=== PATIENT | female | born 1950 | race Caucasian/White ===

== ENCOUNTER 2016-11-08 07:40 | Outpatient (CLI) | payer OTHER | END 2016-11-08 07:41 | disposition home or self-care (01) | DX: E78.1 Pure hyperglyceridemia (principal); R73.9 Hyperglycemia, unspecified; E03.9 Hypothyroidism, unspecified; I10 Essential (primary) hypertension ==

== ENCOUNTER 2016-11-15 09:27 | Outpatient (CLI) | payer OTHER | END 2016-11-15 09:28 | disposition home or self-care (01) | DX: Z12.31 Encounter for screening mammogram for malignant neoplasm of breast (principal) ==

== ENCOUNTER 2017-10-02 08:09 | Outpatient (CLI) | payer OTHER ==
[2017-10-02 08:59] LABS: ALBUMIN/GLOBULIN RATIO 1.4 (1.0-2.2); BILIRUBIN,TOTAL 0.6 mg/dL (0.2-1.0); BUN - BLOOD UREA NITROGEN 31 mg/dL (6-20); CALCIUM 9.7 mg/dL (8.5-10.3); CARBON DIOXIDE - CO2 27 mmol/L (21-32); CHLORIDE 102 mmol/L (101-111); CHOLESTEROL 119 mg/dL; CREATININE 1.1 mg/dL (0.4-1.0); GFR - MDRD 50 (>89); GLUCOSE 103 mg/dL (70-100); HDL CHOLESTEROL 24 mg/dL; LDL/HDL RATIO 2.3 (<4.4); POTASSIUM 4.2 mmol/L (3.5-5.0); SODIUM 140 mmol/L (135-145); TOTAL PROTEIN 7.5 g/dL (6.7-8.2); TRIGLYCERIDES 207 mg/dL; VLDL CHOLESTEROL 41 mg/dL
[2017-10-02 09:22] LABS: HEMOGLOBIN A1C 0.6 g/dL
[2017-10-02 13:03] LABS: BILIRUBIN,URINE NEGATIVE (NEGATIVE)
[2017-10-02 13:41] LABS: WBC,URINE 0-3 /HPF (0-5)
== END 2017-10-02 08:10 | disposition home or self-care (01) ==
LOC: LAB 08:09
PROVIDERS: ATTEND Family Medicine
DX: R73.01 Impaired fasting glucose (principal); E78.5 Hyperlipidemia, unspecified; E03.9 Hypothyroidism, unspecified; I10 Essential (primary) hypertension
CPT/HCPCS: 36415; 80053; 80061; 81001; 83036; 84443

== ENCOUNTER 2017-10-12 10:34 | Outpatient (CLI) | payer OTHER ==
--- NOTE | 2017-10-16 11:47 | XRAY Report ---
DATE OF SERVICE: 10/12/2017 TWO VIEW LUMBAR SPINE: 10/12/2017 CLINICAL INDICATION: Increasing back pain. FINDINGS: Frontal and lateral views of the lumbar spine demonstrate mild degenerative disk and facet disease, with small osteophytes. There is no evidence of compression fracture or subluxation. The bowel gas pattern appears unremarkable. IMPRESSION: Mild degenerative changes. TD: 10/12/2017 21:57
== END 2017-10-12 10:35 | disposition home or self-care (01) ==
LOC: DI 10:34
PROVIDERS: ATTEND Family Medicine
DX: M51.36 Other intervertebral disc degeneration, lumbar region (principal); M47.896 Other spondylosis, lumbar region
CPT/HCPCS: 72100

== ENCOUNTER 2019-03-07 08:49 | Outpatient (CLI) | payer MEDICARE, OTHER ==
--- NOTE | 2019-03-07 10:17 | Mammography Report ---
Reason: PREVENTATIVE HEALTH CARE Procedure Date: 03/07/2019 Accession Number: [id number] / [id number] Procedure: [facility] - Screening Mammo w/Emanuel CPT Code: FULL RESULT: EXAM: Screening Mammo w/Emanuel DATE: 03/07/2019 9:22 AM CLINICAL HISTORY: Screening encounter. History of nulliparity and history of colon cancer. TECHNIQUE: (B) - Bilateral CC and MLO views were obtained. COMPARISON: 11/15/2016 through 12/12/2013. PARENCHYMAL PATTERN: (A) - The breast(s) demonstrate(s) scattered fibroglandular densities. FINDINGS: There are coarse bilateral calcifications. There are no suspicious masses, calcifications, or areas of distortion. IMPRESSION: Benign findings. BI-RADS category 2. RECOMMENDATION: (ANNUAL) - Recommend routine annual screening mammography. BI-RADS CATEGORY: (2) - Benign Findings. STANDARD QUALIFYING STATEMENTS: 1. This examination was not reviewed with the aid of Computer-Aided Detection (CAD). 2. A negative or benign imaging report should not preclude biopsy if clinically suspicious findings are present. 3. Dense breasts may obscure an underlying neoplasm. 4. This examination was reviewed with the aid of 3D breast imaging (tomosynthesis).
== END 2019-03-07 08:50 | disposition home or self-care (01) ==
LOC: DI 08:49
PROVIDERS: ATTEND Family Medicine
DX: Z12.31 Encounter for screening mammogram for malignant neoplasm of breast (principal)
CPT/HCPCS: 77063; 77067

== ENCOUNTER 2019-04-08 10:33 | Outpatient (CLI) | payer MEDICARE, OTHER ==
--- NOTE | 2019-04-08 15:48 | DEXA Report ---
Reason: ASYMPTOMATIC MENOPAUSAL STATE Procedure Date: 04/08/2019 Accession Number: [id number] / [id number] Procedure: DEX - Dexa Spine and/or Hip CPT Code: FULL RESULT: EXAM: Dexa Spine and/or Hip DATE: 04/08/2019 11:24 AM CLINICAL HISTORY: ASYMPTOMATIC MENOPAUSAL STATE TECHNIQUE: Dual energy x-ray absorptiometry (DXA) was performed on a Drik System. Regions measured are the AP Spine, femoral neck, and if needed forearm. COMPARISON: None. In accordance with the International Society for Clinical Densitometry (ISCD) guidelines, data from previous exams may be reanalyzed using current recommendations and techniques. This is done to allow a more accurate basis for comparison with the current study. FINDINGS: The data for the lumbar spine is as follows: BMD (g/cm/cm) T-SCORE Z-SCORE REGION L1 0.970 -1.3 -0.6 L2 1.117 -0.7 0.0 L3 1.107 -0.8 0.0 L4 1.025 -1.5 -0.7 TOTAL 1.056 -1.0 -0.3 NOTE: All evaluable vertebrae are used for classification The data for the hip is as follows: BMD (g/cm/cm) T-SCORE Z-SCORE REGION Neck 0.828 -1.5 -0.5 TOTAL 0.927 -0.6 0.1 NOTE: The femoral neck or total proximal femur, whichever is lowest, is used for classification. IMPRESSION: THE WHO CLASSIFICATION BASED ON THE INTERNATIONAL REFERENCE STANDARD IS OSTEOPENIA. THE FRACTURE RISK IS INCREASED. RECOMMENDATION: Patients with diagnosis of osteoporosis or osteopenia should have regular bone mineral density assessment. For those eligible for Medicare, routine testing is allowed once every 2 years. Testing frequency can be increased for patients who have rapidly progressing disease or for those who are receiving medical therapy to restore bone mass. COMMENT: World Health Organization (WHO) definitions for osteoporosis and osteopenia: NORMAL BMD: T-score at -1.0 or higher, fracture risk is low OSTEOPENIA BMD: T-score between -1.0 and -2.5, fracture risk is increased. OSTEOPOROSIS BMD: T-score at -2.5 or lower, fracture risk is high. National Osteoporosis Foundation recommends: 1. Obtain adequate dietary calcium (at least 1200 mg per day) and vitamin D (400-800 international units per day). 2. Participate, as appropriate, in regular weightbearing and muscle-strengthening exercise. 3. Avoid tobacco use and reduce alcohol and caffeine intake. 4. For more detailed information see the website at www.NOF.org.
== END 2019-04-08 10:34 | disposition home or self-care (01) ==
LOC: DI 10:33
PROVIDERS: ATTEND Family Medicine
DX: M85.89 Other specified disorders of bone density and structure, multiple sites (principal)
CPT/HCPCS: 77080

== ENCOUNTER 2019-05-14 07:16 | Outpatient (CLI) | payer MEDICARE, OTHER ==
[2019-05-14 07:59] LABS: ALBUMIN 3.9 g/dL (3.2-5.5); ALBUMIN/GLOBULIN RATIO 1.3 (1.0-2.2); ALKALINE PHOSPHATASE 59 IU/L (42-121); ALT ALANINE AMINOTRANSFERASE 38 IU/L (10-60); AST ASPARTATE AMINOTRANSFERASE 26 IU/L (10-42); BILIRUBIN,TOTAL 0.6 mg/dL (0.2-1.0); BUN - BLOOD UREA NITROGEN 19 mg/dL (6-20); CALCIUM 9.3 mg/dL (8.5-10.3); CARBON DIOXIDE - CO2 26 mmol/L (21-32); CHLORIDE 102 mmol/L (101-111); CHOL/HDL RATIO 5.7 (<4.4); CHOLESTEROL 153 mg/dL; CREATININE 0.9 mg/dL (0.4-1.0); GFR - MDRD 62 (>89); GLUCOSE 124 mg/dL (70-100); HDL CHOLESTEROL 27 mg/dL; LDL CHOLESTEROL,CALCULATED 62 mg/dL; LDL/HDL RATIO 2.3 (<4.4); SODIUM 139 mmol/L (135-145); TOTAL PROTEIN 6.9 g/dL (6.7-8.2); VLDL CHOLESTEROL 64 mg/dL
[2019-05-14 09:27] LABS: THYROID STIMULATING HORMONE 0.65 uIU/mL (0.34-5.60)
[2019-05-14 09:28] LABS: HB2 TOTAL 13.8 g/dL; HEMOGLOBIN A1C 0.64 g/dL; HEMOGLOBIN A1C % 6.4 % (4.6-6.2)
[2019-05-14 09:29] LABS: FREE T4 (FREE THYROXINE) 0.81 ng/dL (0.58-1.64)
[2019-05-14 14:15] LABS: BILIRUBIN,URINE NEGATIVE (NEGATIVE); GLUCOSE, URINE (UA) NEGATIVE (NEGATIVE); KETONES,URINE (UA) NEGATIVE (NEGATIVE); LEUKOCYTE ESTERASE, URINE TRACE (NEGATIVE); NITRITE,URINE NEGATIVE (NEGATIVE); OCCULT BLOOD,URINE NEGATIVE (NEGATIVE); PROTEIN,URINE NEGATIVE (NEGATIVE); UROBILINOGEN,URINE 0.2 (NORMAL) E.U./dL (NORMAL)
[2019-05-14 14:29] LABS: BACTERIA,URINE None Seen /HPF (None Seen); CLARITY,URINE CLEAR (CLEAR); RBC,URINE None Seen /HPF (0-5); SQUAMOUS EPITHELIAL CELL,UR MOD Squamous (<= Few)
== END 2019-05-14 07:17 | disposition home or self-care (01) ==
LOC: LAB 07:16
PROVIDERS: ATTEND Family Medicine
DX: Z00.00 Encounter for general adult medical examination without abnormal findings (principal); I10 Essential (primary) hypertension; E78.2 Mixed hyperlipidemia; E03.9 Hypothyroidism, unspecified
CPT/HCPCS: 36415; 80053; 80061; 81001; 83036; 83721; 84439; 84443

== ENCOUNTER 2019-09-15 12:17 | Emergency (ER) | payer MEDICARE, OTHER ==
[2019-09-15] MEDS ORDERED: OXYMETAZOLINE HCL 100 SPRAYS BOTTLE NAS STA (12:45)
--- NOTE | 2019-09-15 12:47 | ED Physician Documentation ---
History of Present Illness - Stated complaint Stated Complaint: NOSE BLEED - Chief complaint Chief Complaint: Heent - Additonal information Additional information: This is a 69-year-old and recurrent nosebleeds since she has been in college, who presents with a nosebleed. Patient states that her bleeds always come from the right nostril, she has seen her primary care provider for this and discussed cauterization, and they recommended using Vaseline and avoiding trauma or hard nose blowing. She has had several nosebleeds in the last month, and this 1 began after she blew her nose today. She does take 325 mg of aspirin daily, no other blood thinners. She denies bleeding elsewhere. 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 - Present Medications Home Medications: Ambulatory Orders Medication Instructions Recorded Confirmed Aspirin [Gerald] 325 mg ORAL DAILY 07/01/14 07/01/14 Atenolol 50 mg ORAL DAILY 07/01/14 07/01/14 Benazepril/Hydrochlorothiazide 20 mg ORAL DAILY 07/01/14 07/01/14 [Benazepril-Hctz 20-12.5 mg Tab] Citalopram [CeleXA] 40 mg ORAL DAILY 07/01/14 07/01/14 Levothyroxine [Synthroid] 112 mcg ORAL DAILY 07/01/14 07/01/14 Omeprazole 20 mg ORAL BID 07/01/14 07/01/14 - Allergies Allergies/Adverse Reactions: Allergies Allergy/AdvReac Type Severity Reaction Status Date / Time morphine Allergy Rash Verified 09/15/19 12:27 Penicillins Allergy Hives Verified 09/15/19 12:27 PD ED PE NORMAL - Vitals Vital signs reviewed: Yes - General General: Alert and oriented X 3 - HEENT HEENT: Other (Dried blood on the face, pharynx is normal in appearance with no blood going down the back of the throat. There is oozing from the right nostril.) - Cardiac Cardiac: RRR - Respiratory Respiratory: No respiratory distress - Neuro Neuro: Alert and oriented X 3 Results - Vitals Vitals: Oxygen O2 Source Room air PD MEDICAL DECISION MAKING - ED course ED course: Pt presents with epistaxis that resolved with direct pressure. She has no symptoms to suggest coagulopathy, significant blood loss/anemia, or thrombocytopenia. I discussed care, avoiding blowing nose today to allow time for healing, and the use of afrin and direct pressure if the nosebleed recurs. I also discussed return precautions. After observation for >30 mins she has no further bleeding and was discharged home. Departure - Departure Disposition: 01 Home, Self Care Clinical Impression: Epistaxis Condition: Good Instructions: ED Nosebleed Follow-Up: Nando Zambrano MD [Physician No Access] - (For follow up on recurrent nosebleeds) Comments: If you have a recurrence of your nosebleed, please spray 2 sprays of the Afrin in the nostril which is bleeding and then hold direct pressure on your nose for 10 to 15 minutes without interruption. If you are still having bleeding after this return to the emergency department. Please follow-up with Dr. Zambrano of ENT, who can assess you for the cause of your recurrent bleeds and potentially consider cauterization or other intervention. If you are developing any new or concerning symptoms return to the ED. Discharge Date/Time: 09/15/19 14:33
[2019-09-15 14:40] VITALS: BP 124/59
== END 2019-09-15 14:33 | disposition home or self-care (01) ==
LOC: ED 12:17
DX: R04.0 Epistaxis (principal); I10 Essential (primary) hypertension; Z79.82 Long term (current) use of aspirin
CPT/HCPCS: 99281; 99284; A9270

== ENCOUNTER 2020-12-24 18:23 | Outpatient (CLI) | payer MEDICARE, OTHER | END 2020-12-24 18:24 | disposition home or self-care (01) | LOC: COV 18:23 | PROVIDERS: ATTEND Nurse Practitioner Family | DX: Z01.812 Encounter for preprocedural laboratory examination (principal); Z86.010 Personal history of colon polyps; Z85.038 Personal history of other malignant neoplasm of large intestine; Z20.822 Contact with and (suspected) exposure to COVID-19 ==

== ENCOUNTER 2021-01-14 15:47 | Outpatient (CLI) | payer MEDICARE, OTHER ==
--- OUTSIDE RECORDS SUMMARY | 2021-01-19 02:23 | EXTERNAL MEDICAL SUMMARY RPT | Continuity of Care Document ---
:1950 Demographics Phone Unavailable Preferred Language Unknown Marital Status Unknown Moravian Affiliation Unknown Race Unknown Ethnic Group Unknown Author Organization [facility] Address [address] [place] [address] Phone Social History date description facility [phone]
== END 2021-01-14 15:48 | disposition critical access hospital (66) ==
LOC: EMS 15:47
PROVIDERS: ATTEND Emergency Medicine
DX: M25.511 Pain in right shoulder (principal); M79.601 Pain in right arm
CPT/HCPCS: A0425; A0429

== ENCOUNTER 2021-01-14 16:16 | Emergency (ER) | payer MEDICARE, OTHER ==
[2021-01-14] MEDS ORDERED: fentaNYL 100 MCG/2 ML VIAL IVP STA ×2 (16:38→17:30)
[2021-01-14] MEDS ORDERED: diazePAM INJ 5 MG/ML SYRINGE IVP STA (17:30)
--- NOTE | 2021-01-14 17:53 | XRAY Report ---
PROCEDURE: Shoulder 3 View RT INDICATIONS: fall, shoulder pain TECHNIQUE: 3 views of the shoulder were acquired. COMPARISON: None. FINDINGS: Bones: There is anterior dislocation of the right glenohumeral joint. A comminuted fracture of the s uperolateral humeral head involving the greater tuberosity is demonstrated. A lucency is demonstrated within the inferior glenoid suggestive of a relatively nondisplaced glenoid fracture. Visualized rib s appear intact. Soft tissues: No suspicious soft tissue calcifications. IMPRESSION: 1. Anterior dislocation of the glenohumeral joint. 2. Comminuted humeral head fracture involving the greater tuberosity. 3. Suspected nondisplaced fracture of the inferior glenoid. Reviewed by: Augie Nava MD on 01/14/2021 5:52 PM PDT Approved by: Augie Nava MD on 01/14/2021 5:52 PM PDT Station ID: [id number]
[2021-01-14] MEDS ORDERED: PROPOFOL 200 MG/20 ML VIAL IVP STA (18:14)
[2021-01-14] MEDS ORDERED: SODIUM CHLORIDE 0.9% 1,000 ML IV STA (18:14)
--- NOTE | 2021-01-14 18:46 | XRAY Report ---
PROCEDURE: Shoulder 2 View RT INDICATIONS: R shoulder post reduction TECHNIQUE: 2 views of the shoulder were acquired. COMPARISON: 01/14/2021. FINDINGS: Bones: There is interval reduction of the glenohumeral joint. There is also reduction of the fractur e fragments along the lateral humeral head involving the greater tuberosity. Suspected nondisplaced g lenoid fracture not well visualized on the current study. There is mild acromioclavicular joint degen eration. No suspicious bony lesions. Visualized ribs appear intact. Soft tissues: No suspicious soft tissue calcifications. IMPRESSION: 1. Interval reduction of the glenohumeral joint. 2. Improved alignment of humeral head fracture fragments status post closed reduction. Reviewed by: Augie Nava MD on 01/14/2021 6:45 PM PDT Approved by: Augie Nava MD on 01/14/2021 6:45 PM PDT Station ID: [id number]
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
[2021-01-14] MEDS ORDERED: oxyCODONE 5 MG TABLET PO STA (19:07)
[2021-01-14 19:29] VITALS: BP 138/89
--- OUTSIDE RECORDS SUMMARY | 2021-01-19 02:13 | EXTERNAL MEDICAL SUMMARY RPT | Continuity of Care Document ---
:1950 Demographics Phone Unavailable Preferred Language Unknown Marital Status Unknown Hinduism Affiliation Unknown Race Unknown Ethnic Group Unknown Author Organization [facility] Address [address] [place] [address] Phone Social History date description facility [phone]
== END 2021-01-14 19:28 | disposition home or self-care (01) ==
LOC: EDUNIT# → ED 16:16 → SUPCPDRO 16:16 → ED 19:28
DX: S42.254A Nondisplaced fracture of greater tuberosity of right humerus, initial encounter for closed fracture (principal); S43.014A Anterior dislocation of right humerus, initial encounter; W18.30XA Fall on same level, unspecified, initial encounter; I10 Essential (primary) hypertension; Z79.82 Long term (current) use of aspirin
CPT/HCPCS: 23665; 36415; 73030; 96361; 96374; 96375; 96376; 99151; 99284; 99285; A9270; 94770

== ENCOUNTER 2021-09-12 08:48 | Outpatient (CLI) | payer MEDICARE, OTHER ==
--- NOTE | 2021-09-13 08:20 | Mammography Report ---
BILATERAL DIGITAL SCREENING MAMMOGRAM 3D/2D WITH EXAGGERATED CC: 09/12/2021 CLINICAL: Routine screening. Comparison is made to exams dated: 08/04/2008 mammogram, 11/15/2016 mammogram, 01/12/2015 mammogram, mammogram, 05/03/2011 mammogram, and 02/15/2010 mammogram - [facility]. There are scattered fibroglandular elements in both breasts. There are benign calcifications in both breasts. No significant masses, calcifications, or other findings are seen in either breast. There has been no significant interval change. IMPRESSION: BENIGN There is no mammographic evidence of malignancy. A 1 year screening mammogram is recommended. This exam was interpreted at Station ID: [id number]. NOTE: For mammograms, a report in lay terms will be sent to the patient. Approximately 15% of breast malignancies will not be visualized mammographically. In the management of a palpable breast mass, a negative mammogram must not discourage biopsy of a clinically suspicious lesion. Electronically Signed By: Augie Nava M.D. [email or web address]:09/12/2021 11:01:38 ACR BI-RADS Category 2: Benign Finding(s) 3342F PARENCHYMAL PATTERN: (A) - The breast(s) demonstrate(s) scattered fibroglandular densities. BI-RADS CATEGORY: (2) - 2 RECOMMENDATION: (ANNUAL) - Recommend routine annual screening mammography. [id number] 1 year screening LATERALITY: (B)
== END 2021-09-12 08:49 | disposition home or self-care (01) ==
LOC: DI.S 08:48
PROVIDERS: ATTEND Family Medicine
DX: Z12.31 Encounter for screening mammogram for malignant neoplasm of breast (principal)

== ENCOUNTER 2022-09-21 12:35 | Outpatient (CLI) | payer MEDICARE, OTHER | END 2022-09-21 23:59 | disposition critical access hospital (66) | LOC: EMS 12:35 | DX: M25.561 Pain in right knee (principal); W10.8XXA Fall (on) (from) other stairs and steps, initial encounter; Y92.009 Unspecified place in unspecified non-institutional (private) residence as the place of occurrence of the external cause | CPT/HCPCS: A0425; A0429 ==

== ENCOUNTER 2022-09-21 13:06 | Emergency (ER) | payer MEDICARE, OTHER ==
[2022-09-21] MEDS ORDERED: HYDROcod/ACETAM 5/325 MG TABLET PO STA (13:20)
[2022-09-21] MEDS ORDERED: IBUPROFEN 800 MG TABLET PO STA (13:21)
--- NOTE | 2022-09-21 13:24 | ED Physician Documentation ---
PD HPI LOWER EXT INJURY - Stated complaint Stated Complaint: R KNEE INJURY - Chief complaint Chief Complaint: Trauma Ext - History obtained from History obtained from: Patient - Additional information Additional information: The patient comes to the emergency department with chief complaint of right lower leg pain after a fall on stairs. The patient states that she stumbled and fell, hitting her proximal anterior tibial area against the edge of a stair. She states that it has hurt so bad since that it is nearly impossible for her to bear weight on it. She denies any pain in the knee joint itself. She was not hurt in any other way. No prior injury to the area. The patient has noticed minimal swelling and no bruising. Movement hurts the worst, especially trying to extend at the knee. No other complaints at this time. Review of Systems Ten Systems: 10 systems reviewed and negative Constitutional: reports: Reviewed and negative Eyes: reports: Reviewed and negative Ears: reports: Reviewed and negative Nose: reports: Reviewed and negative Throat: reports: Reviewed and negative Cardiac: reports: Reviewed and negative Respiratory: reports: Reviewed and negative GI: reports: Reviewed and negative : reports: Reviewed and negative Skin: reports: Reviewed and negative Musculoskeletal: reports: Extremity pain, Pain with weight bearing Neurologic: reports: Reviewed and negative Psychiatric: reports: Reviewed and negative Endocrine: reports: Reviewed and negative Immunocompromised: reports: Reviewed and negative PD PAST MEDICAL HISTORY - Past Medical History Cardiovascular: Hypertension, Arrhythmia Respiratory: None Endocrine/Autoimmune: HyPOthyroidism GI: GERD, Colon polyps : None HEENT: None Psych: None Musculoskeletal: None Derm: None - Past Surgical History Past Surgical History: Yes General: Bowel surgery /RN PROVIDER RELATIONS: Hysterectomy - Present Medications Home Medications: Ambulatory Orders Medication Instructions Recorded Confirmed Aspirin [Gerald] 325 mg ORAL DAILY 07/01/14 01/14/21 Atenolol 50 mg ORAL DAILY 07/01/14 01/14/21 Levothyroxine [Synthroid] 112 mcg ORAL DAILY 07/01/14 01/14/21 Omeprazole 20 mg ORAL BID 07/01/14 01/14/21 Duloxetine HCl [Cymbalta] 60 mg PO DAILY 01/14/21 01/14/21 Oxycodone HCl/Acetaminophen 1 - 2 each PO Q6H PRN #14 tablet 01/14/21 [Percocet 5-325 mg Tablet] Atorvastatin Calcium 40 mg PO 09/21/22 Benazepril/Hydrochlorothiazide 1 each PO 09/21/22 [Lotensin Hct 20-12.5 mg Tablet] Metformin HCl [Metformin ER 500 mg PO BID 09/21/22 09/21/22 Osmotic] Metoprolol Succinate [Toprol Xl] 50 mg PO DAILY 09/21/22 09/21/22 Ondansetron Odt [Zofran] 4 mg TL Q6H PRN #10 tablet 09/21/22 Oxycodone HCl/Acetaminophen 1 - 2 each PO Q6H PRN #40 tablet 09/21/22 [Percocet 5-325 mg Tablet] - Allergies Allergies/Adverse Reactions: Allergies Allergy/AdvReac Type Severity Reaction Status Date / Time morphine Allergy Rash Verified 09/21/22 13: Penicillins Allergy Hives Verified 09/21/22 13:22 - Social History Does the pt smoke?: No Smoking Status: Never smoker Does the pt drink ETOH?: No Does the pt have substance abuse?: No - Immunizations Immunizations are current?: Yes PD ED PE NORMAL - Vitals Vital signs reviewed: Yes - General General: Alert and oriented X 3, No acute distress, Well developed/nourished - HEENT HEENT: Atraumatic, PERRL, EOMI, Moist mucous membranes - Neck Neck: Supple, no meningeal sign - Respiratory Respiratory: No respiratory distress - Derm Derm: Normal color, Warm and dry, No rash, Other (No contusion) - Extremities Extremities: No deformity, Other (Tenderness palpation proximal right anterior tibial area, especially medially. No edema. No palpable deformity. Minimal extension at the knee, secondary to significant pain with the effort. No patellar tenderness or deformity. Patellar tendon palpably intact.) - Neuro Neuro: Alert and oriented X 3 - Psych Psych: Normal mood, Normal affect Results - Vitals Vitals: Oxygen O2 Source Room air PD MEDICAL DECISION MAKING - ED course Complexity details: reviewed results, re-evaluated patient, considered differential, d/w patient, d/w family ED course: The patient was treated symptomatically with ibuprofen and a tablet of Vicodin and sent for x-ray of the right tib-fib, which showed a fracture of the proximal tibia. The patient was placed in a posterior mold splint. I have sent pictures and a notification of the patient's case to our orthopedist, Dr. Villar, as we have no orthopedic surgeon on-call today. I have advised the patient to call his office first thing, either this afternoon or tomorrow morning, to make the next soonest follow-up appointment. The patient is feeling better after splinting and pain medication. I have sent a prescription for the same to her pharmacy of choice. She has been offered crutches but is having trouble using them, so I have prescribed a wheelchair. We have discussed the usual indications for return. Departure - Departure Disposition: 01 Home, Self Care Clinical Impression: Tibial fracture Qualifiers: Encounter type: initial encounter Tibia location: proximal Fracture type: closed Fracture morphology: unspecified fracture morphology Laterality: right Qualified Code(s): S82.101A - Unspecified fracture of upper end of right tibia, initial encounter for closed fracture Condition: Stable Instructions: ED Fx Lower Ext Follow-Up: Ernie Villar MD [Provider Admit Priv/Credential] - Prescriptions: Oxycodone HCl/Acetaminophen [Percocet 5-325 mg Tablet] 1 - 2 each PO Q6H PRN #40 tablet PRN Reason: pain Ondansetron Odt [Zofran] 4 mg TL Q6H PRN #10 tablet PRN Reason: Nausea / Vomiting Comments: Your x-ray shows a fracture through the upper portion of your right tibia. This is why it hurts so much when you try to move your knee. You will need to follow-up with orthopedics for this to see if they want to do surgery or just put you in cast. Your images have been sent to our orthopedist Dr. Villar. Please call the office as soon as possible at the contact information provided to make the soonest possible appointment. Discharge Date/Time: 09/21/22 15:46
--- NOTE | 2022-09-21 14:13 | XRAY Report ---
PROCEDURE: Tib/Fib RT INDICATIONS: pain after blunt trauma to prox/ant tibia TECHNIQUE: 2 views of the tibia and fibula were acquired. COMPARISON: None. FINDINGS: Indistinct comminuted and displaced fracture of the right proximal tibia with suspected intra-articul ar extension. IMPRESSION: Poorly characterized right proximal tibia fracture with suspected comminution and intra-articular ext ension. CT of the right knee recommended. Reviewed by: Jake English MD on 09/21/2022 1:12 PM [facility] Approved by: Jake English MD on 09/21/2022 1:12 PM [facility] Station ID: [id number]
[2022-09-21] MEDS ORDERED: HYDROmorphone 1 MG/ML CARPUJECT IM STA (14:24)
[2022-09-21] MEDS ORDERED: ONDANSETRON 4 MG/2 ML VIAL IM STA (14:24)
[2022-09-21 14:33] VITALS: BP 145/88
== END 2022-09-21 15:46 | disposition home or self-care (01) ==
LOC: EDUNIT# → ED 13:06
DX: S82.101A Unspecified fracture of upper end of right tibia, initial encounter for closed fracture (principal); W10.9XXA Fall (on) (from) unspecified stairs and steps, initial encounter; W22.03XA Walked into furniture, initial encounter; Y93.89 Activity, other specified
CPT/HCPCS: 73590; 96372; 99283; 99284; A9270; J1170

== ENCOUNTER 2022-09-26 10:51 | Outpatient (CLI) | payer MEDICARE, OTHER ==
--- NOTE | 2022-09-26 19:50 | CT Report ---
PROCEDURE: LOWER EXTREMITY WO - RT INDICATIONS: RIGHT KNEE PAIN TECHNIQUE: Noncontrast 3-mm axial sections acquired from the distal tibial shaft to the talar dome, with coronal and sagittal reformats. For radiation dose reduction, the following was used: automated exposure c ontrol, adjustment of mA and/or kV according to patient size. COMPARISON: Right knee radiograph dated 09/26/2022 and right lower leg radiograph dated 09/21/2022. FINDINGS: Image quality: Excellent. Bones: There is an acute comminuted fractures involving proximal tibia with fracture line extending to bases of tibial spine and lateral tibial plateau. There is slight anterior, medial and lateral displacement of fractured tibial fragments with up to 3 mm depression at lateral tibial plateau fracture site. No other fracture or dislocation is seen. Mode rate tricompartmental osteoarthritic changes are noted most notably in medial femoral tibial compartm ent with joint space narrowing, subchondral sclerosis and marginal osteophyte formation. No significa nt patellar subluxation. No suspicious intraosseous lesion. Soft tissues: There is large lipohemarthrosis with fat fluid level seen. No calcified intra-articular loose bodies. There is no gross full-thickness quadriceps tendon or patellar tendon rupture. Anterior and posterio r cruciate ligaments show no full-thickness rupture. No abnormal soft tissue calcifications. Impression: 1. Comminuted and slightly displaced fracture involving proximal tibia extending to base of tibial sp ine and lateral tibial plateau with up to 3 mm depression lateral tibial plateau fracture site. No ot her fracture or dislocation. 2. 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 3. Large lipohemarthrosis. No abnormal soft tissue calcifications or calcified intra-articular loose bodies. No gross full-thickness tendon or ligament rupture. Reviewed by: Juan F Moe MD on 09/26/2022 7:48 PM PST Approved by: Juan F Moe MD on 09/26/2022 7:48 PM PST Station ID: [id number]
== END 2022-09-26 10:52 | disposition home or self-care (01) ==
LOC: DI 10:51
PROVIDERS: ATTEND Orthopaedic Surgery
DX: S82.141A Displaced bicondylar fracture of right tibia, initial encounter for closed fracture (principal); M17.11 Unilateral primary osteoarthritis, right knee; M25.061 Hemarthrosis, right knee

== ENCOUNTER 2022-09-26 13:53 | Outpatient (CLI) | payer MEDICARE, OTHER ==
--- NOTE | 2022-09-26 13:25 | XRAY Report ---
PROCEDURE: Knee 4 View RT INDICATIONS: RIGHT KNEE PAIN TECHNIQUE: 4 views of the right knee(s) were acquired. COMPARISON: Right tibia and fibula radiographs 09/21/2022, CT right lower extremity same day FINDINGS: Acute mildly displaced bicondylar tibial plateau fracture involving the tibial metaphysis bilaterally . No substantial depression of fracture fragments identified. Buckling of the lateral tibial metaphys is is present. Degenerative changes of the knee are present. A knee effusion/lipohemarthrosis is pres ent. IMPRESSION: Acute tibial plateau fracture as seen on same-day CT. Reviewed by: Vic Recinos MD on 09/26/2022 1:24 PM PST Approved by: Vic Recinos MD on 09/26/2022 1:24 PM PST Station ID: [id number]
== END 2022-09-26 13:54 | disposition home or self-care (01) ==
LOC: DI.WOS 13:53
PROVIDERS: ATTEND Orthopaedic Surgery
DX: S82.141A Displaced bicondylar fracture of right tibia, initial encounter for closed fracture (principal)

== ENCOUNTER 2022-09-27 07:21 | Day surgery (SDC) | payer MEDICARE, OTHER ==
[2022-09-27] MEDS ORDERED: ACETAMINOPHEN 500 MG TABLET PO ONE (07:29)
[2022-09-27] MEDS ORDERED: CEFAZOLIN 2G/50ML 0.9% NS 2 GM/50 ML BAG IV ONE (07:30)
[2022-09-27] MEDS ORDERED: CELECOXIB 100 MG CAPSULE PO ONE (07:30)
[2022-09-27] MEDS ORDERED: LIDOCAINE MPF 2%-EPI 1:200000 20 ML VIAL ONE (07:31)
[2022-09-27] MEDS ORDERED: BUPIVACAINE 0.5% PF 30 ML VIAL ONE (07:31)
[2022-09-27] MEDS ORDERED: LACTATED RINGERS 1,000 ML IV ONE ×2 (08:14→12:55)
--- NOTE | 2022-09-27 08:36 | ANESTHESIA ---
Pre-Anesthesia VS, & Labs - Diagnosis fracture tibial plateau right knee joint - Procedure ORIF right proximal tibia with screws or plate Vital Signs: Temp Pulse Resp BP Pulse Ox O2 Flow Rate 37.1 C 121 H 14 161/93 H 94 09/27/22 08:07 09/27/22 08:07 09/27/22 08:07 09/27/22 08:07 09/27/22 08:07 Height: 5 ft 8 in Weight (kg): 85 kg Body Mass Index: 28.5 BMI Classification: Overweight - NPO >8 hours - Is Patient ?: No - Lab Results Current Lab Results: Laboratory Tests 09/27/22 08:11: POC Whole Bld Glucose 130 H Home Medications and Allergies Home Medications: Ambulatory Orders Cholecalciferol (Vitamin D3) [Vitamin D3] 1 cap PO DAILY 09/26/22 Gabapentin [Neurontin] 1 cap PO DAILY 09/26/22 Lansoprazole [Prevacid] 1 tab PO DAILY 09/26/22 Niacin [Niaspan] 1 tab PO DAILY 09/26/22 mycophenolate mofetiL [Mycophenolate Mofetil] 1 tab PO DAILY 09/26/22 Levothyroxine [Synthroid] 112 mcg ORAL DAILY 07/01/14 Duloxetine HCl [Cymbalta] 60 mg PO DAILY 01/14/21 Atorvastatin Calcium 40 mg PO DAILY 09/21/22 Benazepril/Hydrochlorothiazide [Lotensin Hct 20-12.5 mg Tablet] 1 each PO DAILY 09/21/22 Metformin HCl [Metformin ER Osmotic] 500 mg PO BID 09/21/22 Metoprolol Succinate [Toprol Xl] 50 mg PO DAILY 09/21/22 Cholecalciferol (Vitamin D3) [Vitamin D3] 1 cap PO DAILY 09/26/22 Gabapentin [Neurontin] 1 cap PO DAILY 09/26/22 Lansoprazole [Prevacid] 1 tab PO DAILY 09/26/22 Niacin [Niaspan] 1 tab PO DAILY 09/26/22 mycophenolate mofetiL [Mycophenolate Mofetil] 1 tab PO DAILY 09/26/22 Allergies/Adverse Reactions: Allergies Allergy/AdvReac Type Severity Reaction Status Date / Time morphine Allergy Rash Verified 09/21/22 13:22 Penicillins Allergy Hives Verified 09/21/22 13:22 zolpidem [From Ambien] Allergy Unknown Verified 09/26/22 11:29 Anes History & Medical History - Anesthetic History Anesthesia Complications: reports: No previous complications - Medical History Cardiovascular: reports: Hypertension, High cholesterol, Arrhythmia Pulmonary: reports: None Gastrointestinal: reports: GERD, Colon polyps, Other Urinary: reports: None Neuro: reports: None Musculoskeletal: reports: Chronic back pain Endocrine/Autoimmune: reports: HyPOthyroidism Blood Disorders: reports: None Skin: reports: None Smoking Status: Never smoker Psychosocial: reports: Depression History of Cancer?: Yes (colon/rectal cancer) - Surgical History General: reports: Bowel surgery, Colonoscopy Gynecologic: reports: Hysterectomy Exam General: Alert, Oriented x3, Cooperative, No acute distress Dental: WNL Mouth Openin Fingerbreadth Neck Mobility: Normal Mallampati classification: II Thyromental Distance: 4-6 cm Mental/Cognitive Status: Alert/Oriented X3, Normal for patient Plan Anesthesia Type: General Consent for Procedure(s) Verified and Reviewed: Yes Code Status: Attempt Resuscitation ASA classification: 2-Mild systemic disease Is this case an emergency?: No
[2022-09-27] MEDS ORDERED: MIDAZOLAM 2 MG/2 ML VIAL ONE (08:51)
[2022-09-27] MEDS ORDERED: PROPOFOL 500 MG/50 ML 500 MG/50 ML VIAL ONE (08:55)
[2022-09-27] MEDS ORDERED: fentaNYL 100 MCG/2 ML VIAL ONE ×2 (10:10→12:47)
[2022-09-27] MEDS ORDERED: VANCOMYCIN 1 GM VIAL ONE (11:09)
[2022-09-27] MEDS ORDERED: VANCOMYCIN 1 GM VIAL MC ONE (11:31)
[2022-09-27] MEDS ORDERED: HYDROmorphone 1 MG/ML CARPUJECT ONE (11:49)
[2022-09-27] MEDS ORDERED: ROPIVACAINE 0.2% PF 10 ML VIAL ONE (12:08)
[2022-09-27] MEDS ORDERED: DEXAMETHASONE 4 MG/ML VIAL ONE (12:10)
[2022-09-27] MEDS ORDERED: ONDANSETRON 4 MG/2 ML VIAL ONE (12:10)
[2022-09-27] MEDS ORDERED: BUPIVACAINE 0.5% PF 30 ML VIAL INFIL ONE ×2 (12:17)
--- NOTE | 2022-09-27 12:31 | OPERATIVE REPORT ---
Operative Report - General Procedure Date: 09/27/22 Planned Procedure: Open reduction internal fixation bicondylar tibial plateau fracture right knee Pre-Op Diagnosis: Mildly displaced bicondylar tibial plateau fracture right knee Procedure Performed: Open reduction internal fixation bicondylar tibial plateau fracture right knee with lateral buttress plate and medial cancellous lag screw Post Op Diagnosis: Same as preoperative diagnosis - Procedure Note Primary Surgeon: Ernie Villar MD Secondary Surgeon: Tatum Fletcher PAC Anesthesia Provider: Tamara Dye CRNA Anesthesia Technique: Spinal Estimated Blood Loss (mL): 25 Indications: This is a 72-year-old with a mechanical fall over a dog about 6 days ago with isolated injury to right knee area. She was seen in the emergency room following injury and referred to our office for outpatient evaluation. She had localized pain, tenderness to knee, to limited motion, mild swelling and soft compartments, neurovascular intact right leg. Her x-rays and CT scan were obtained prior to surgery and showed a bicondylar plateau fracture with a split in the central plateau articular surface. There was not significant joint depression present. There was mild comminution at fracture site, mild displacement.The CT scan showed the intra-articular portion of the fracture much more clearly than the routine x-rays. The patient was in agreement to surgical stabilization of her fracture as outpat ient. An informed consent was obtained. Her health is generally good and she is relatively active physically. Findings: The fracture aligned well with C arm image views being able to visualize fracture and internal fixation.The fracture pattern was as described. Complications: None - Other Other Information/Narrative: The patient was brought to the operating room and given a spinal anesthetic to the lumbar spine. She was placed in the supine position with the right leg over a foam ramp with knee flexed. A pneumatic tourniquet was applied to the proximal right thigh over stockinette. A large bump was placed beneath the right buttock to help with internal rotation of right leg. A timeout procedure was performed by the entire operating room team and all were in agreement. The tourniquet was elevated after exsanguination of right leg. Pneumatic tourniquet was elevated 250 mmHg. A 7-1/2 cm curvilinear incision was made over the lateral plateau beginning anteriorly near the tibial crest and extending more posteriorly toward the fibular head and joint line. There is a fascia was incised elevating the anterior compartment. The C-arm image intensifier was utilized to visualize the fracture. A large bone clamp was used to compress the medial lateral fracture fragments. A [employer] locking buttress plate for the tibial plateau was inserted and stabilized with K wires. The distal screw was a nonlocking screw initially to compress the plate to bone. Locking, rafting screws were placed proximally to support the joint and then additional screws were placed below the joint. The nonlocking screw was changed to a locking screw. An additional 7.0 mm cancellous screw was placed from the medial tibial condyle through a 1 cm incision using the guidepin, cannulated drill and a 16mm screw which was inserted from medial to lateral. The knee joint was stable, range of motion was stable as well. The internal fixation appeared to be well situated and the fracture well aligned. The tourniquet was deflated. Tourniquet time was 63 minutes. The wound was thoroughly irrigated. Vancomycin 2 g powder was placed over the plate. The fascia was closed with 0 Vicryl. The skin was closed with 3-0 subcuticular Monocryl, Dermabond, Mepilex dressing, fluffs, cast padding and Karri wrap. She was placed in a long-leg hinged knee brace set at 0 to 30 degrees. She tolerated the procedure well.A physician assistant store director was medically necessary to help with prepping and draping, posit ioning, protection of vital structures, assistance during the procedure including wound closure, dressing and/or splinting.She received 2 g of Ancef intravenously prior to the procedure.
[2022-09-27] MEDS ORDERED: HYDROmorphone 0.5 MG/0.5 ML SYRINGE IVP PRN (12:58)
[2022-09-27] MEDS ORDERED: ACETAMINOPHEN 500 MG TABLET PO PRN (12:58)
[2022-09-27] MEDS ORDERED: NALOXONE 0.4 MG/ML VIAL IVP PRN (12:58)
[2022-09-27] MEDS ORDERED: CELECOXIB 100 MG CAPSULE PO PRN (12:58)
[2022-09-27] MEDS ORDERED: ATROPINE ABBOJECT 1 MG/10 ML SYRINGE IVP PRN (12:58)
[2022-09-27] MEDS ORDERED: fentaNYL 100 MCG/2 ML VIAL IVP PRN (12:58)
[2022-09-27] MEDS ORDERED: oxyCODONE 5 MG TABLET PO PRN (12:58)
[2022-09-27] MEDS ORDERED: ONDANSETRON 4 MG/2 ML VIAL IVP PRN ×2 (12:58)
[2022-09-27] MEDS ORDERED: LACTATED RINGERS 1,000 ML IV SCH (13:00)
[2022-09-27] MEDS ORDERED: oxyCODONE 5 MG TABLET ONE (13:38)
[2022-09-27] MEDS ORDERED: KETOROLAC 15 MG/ML VIAL ONE (13:39)
[2022-09-27 16:09] VITALS: BP 138/78
--- NOTE | 2022-09-27 17:38 | XRAY Report ---
PROCEDURE: OR C-Arm Procedure INDICATIONS: Right ORIF Proximal Tibia FLUORO TIME: 0:32 MIN TECHNIQUE: For nondiagnostic intraoperative fluoroscopic images of the right knee COMPARISON: None. CONCLUSION: Four nondiagnostic fluoroscopic images obtained during right tibial ORIF demonstrate right tibial lat eral buttress plate and screw fixation. Appropriate position of the hardware with no acute cortical d ictating hardware feature identified. Reviewed by: Jake English MD on 09/27/2022 5:37 PM PST Approved by: Jake English MD on 09/27/2022 5:37 PM PST Station ID: [id number]
== END 2022-09-27 07:22 | disposition home or self-care (01) ==
LOC: SDS 07:21
PROVIDERS: ATTEND Orthopaedic Surgery
DX: S82.141A Displaced bicondylar fracture of right tibia, initial encounter for closed fracture (principal); I10 Essential (primary) hypertension; E03.9 Hypothyroidism, unspecified
CPT/HCPCS: 27536; A9270; J0690; J1170; J3370; J7120

== ENCOUNTER 2022-10-31 14:11 | Outpatient (CLI) | payer MEDICARE, OTHER ==
--- NOTE | 2022-10-31 15:33 | XRAY Report ---
PROCEDURE: Knee 2 View RT INDICATIONS: RIGHT KNEE PAIN TECHNIQUE: 2 views of the right knee(s) were acquired. COMPARISON: None. FINDINGS: Bones: Postoperative changes of fixation of the proximal tibia with no pericardial hardware lucency or hardware fracture. There are degenerative changes of the medial joint space with osteophytes. Soft tissues: No joint effusion. No suspicious soft tissue calcifications. IMPRESSION: 1. Postoperative changes of ORIF of the right proximal tibia without complication. 2. Mild degenerative changes of the right knee with medial joint space narrowing. Reviewed by: Chong Lane on 10/31/2022 3:32 PM PST Approved by: Chong Lane on 10/31/2022 3:32 PM PST Station ID: [id number]
== END 2022-10-31 14:12 | disposition home or self-care (01) ==
LOC: DI.WOS 14:11
PROVIDERS: ATTEND Orthopaedic Surgery
DX: S82.101D Unspecified fracture of upper end of right tibia, subsequent encounter for closed fracture with routine healing (principal); M17.11 Unilateral primary osteoarthritis, right knee

== ENCOUNTER 2022-11-30 11:42 | Outpatient (CLI) | payer MEDICARE, OTHER ==
--- NOTE | 2022-11-30 14:06 | XRAY Report ---
PROCEDURE: Knee 3 View RT INDICATIONS: RIGHT KNEE ORIF TECHNIQUE: 4 views of the right knee(s) were acquired. COMPARISON: 10/31/2022 FINDINGS: Bones: Healing proximal tibial fracture transfixed by cortical plate and multiple screws. No evidenc e of hardware failure or loosening. Medial joint space narrowing with small marginal osteophytes. Soft tissues: Small joint effusion. No suspicious soft tissue calcifications. IMPRESSION: Healing instrumented proximal tibial fracture. No hardware failure or loosening Reviewed by: Misha Lundberg MD on 11/30/2022 1:04 PM [facility] Approved by: Misha Lundberg MD on 11/30/2022 1:04 PM [facility] Station ID: [id number]
== END 2022-11-30 11:51 | disposition home or self-care (01) ==
LOC: DI.WOS 11:42
PROVIDERS: ATTEND Orthopaedic Surgery
DX: S82.141D Displaced bicondylar fracture of right tibia, subsequent encounter for closed fracture with routine healing (principal)

== ENCOUNTER 2023-01-11 08:00 | Outpatient (CLI) | payer MEDICARE, OTHER ==
--- NOTE | 2023-01-11 14:28 | XRAY Report ---
PROCEDURE: Knee 3 View RT INDICATIONS: RIGHT KNEE ORIF TECHNIQUE: 3 views of the right knee(s) were acquired. COMPARISON: X-ray knee 11/30/2022 FINDINGS: Bones: Proximal tibial fixation is present. Hardware is intact without evidence of hardware fracture or periprosthetic lucency to suggest loosening. Alignment is stable. Fracture lucencies remain visib le, although slightly less prominent. Degenerative tricompartmental arthritic change.. No suspicious bony lesions. Soft tissues: No joint effusion. No suspicious soft tissue calcifications. IMPRESSION: Stable alignment and less prominent appearance of fracture lucencies within the proximal tibial fixation. Reviewed by: Josiane Young MD on 01/11/2023 2:27 PM PDT Approved by: Josiane Young MD on 01/11/2023 2:27 PM PDT Station ID: [id number]
== END 2023-01-11 23:59 | disposition home or self-care (01) ==
LOC: DI.WOS 08:00
PROVIDERS: ATTEND Orthopaedic Surgery
DX: S82.141D Displaced bicondylar fracture of right tibia, subsequent encounter for closed fracture with routine healing (principal)

== ENCOUNTER 2023-05-07 10:00 | Outpatient (CLI) | payer MEDICARE, OTHER ==
--- NOTE | 2023-05-07 13:32 | XRAY Report ---
PROCEDURE: Knee 3 View RT INDICATIONS: RIGHT TIBIA ORIF TECHNIQUE: 3 views of the right knee(s) were acquired. COMPARISON: 01/11/2023, 10/31/2022 FINDINGS: Bones: There is fixation hardware in the proximal tibia which appears in expected location and is in tact. The fracture plane is no longer seen. Mild osteoarthritic changes in the medial compartment. Th e joint is in normal alignment. Soft tissues: No knee joint effusion. No suspicious soft tissue calcifications or masses. IMPRESSION: 1. Intact hardware. 2. Ongoing healing of prior tibial plateau fractures. Reviewed by: Nadege Watkins MD on 05/07/2023 12:58 PM PDT Approved by: Nadege Watkins MD on 05/07/2023 12:58 PM PDT Station ID: [id number]
== END 2023-05-07 23:59 | disposition home or self-care (01) ==
LOC: DI.WOS 10:00
PROVIDERS: ATTEND Orthopaedic Surgery
DX: S82.141D Displaced bicondylar fracture of right tibia, subsequent encounter for closed fracture with routine healing (principal)